=== PATIENT | male | born 1950 | race Caucasian/White ===

== ENCOUNTER 2018-09-26 19:14 | Emergency (ER) | payer OTHER ==
[2018-09-26 23:06] VITALS: BP 132/75
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
== END 2018-09-26 23:18 | disposition home or self-care (01) ==
LOC: ED 19:14
DX: S16.1XXA Strain of muscle, fascia and tendon at neck level, initial encounter (principal); S29.012A Strain of muscle and tendon of back wall of thorax, initial encounter; R20.2 Paresthesia of skin; F17.210 Nicotine dependence, cigarettes, uncomplicated; V49.40XA Driver injured in collision with unspecified motor vehicles in traffic accident, initial encounter; Y92.410 Unspecified street and highway as the place of occurrence of the external cause
CPT/HCPCS: 72125; 72128; 99281

== ENCOUNTER 2022-01-12 16:34 | Inpatient (IN) ==
[2022-01-12] MEDS ORDERED: Nicotine PATCH 14 MG/24 HR PATCH TRANSDERM ONE (17:14)
[2022-01-12] MEDS ORDERED: Nicotine PATCH 21 MG/24 HR PATCH ONE (17:15)
[2022-01-12] MEDS ORDERED: Nicotine PATCH 21 MG/24 HR PATCH TRANSDERM ONE (17:16)
[2022-01-12 17:18] LABS: ABS Lymphocytes 0.3 10^3/ul (1.0-4.8); ABS Monocytes 0.9 10^3/ul (0-0.8); Hematocrit 46 % (42-52); Hemoglobin 15.6 g/dL (14.0-18.0); Lymphocyte % 2.8 %; Mean Corpuscular HGB Conc 34 g/dL (31-36); Mean Corpuscular Hemoglobin 31 pg (27-31); Mean Corpuscular Volume 92 fL (80-94); Mean Platelet Volume 7.9 fL (7.4-10.4); Platelet Count 165 10^3/uL (150-450); Red Blood Count 4.97 10^6 /uL (4.18-5.48); Red Cell Distribution Width 14 % (10-15); White Blood Count 12.3 10^3/uL (3.5-10.8)
[2022-01-12 17:53] LABS: ALT 66 U/L (7-52); AST 179 U/L (13-39); Albumin 3.8 g/dL (3.2-5.2); Albumin/Globulin Ratio 1.6 (1-3); Alkaline Phosphatase 80 U/L (35-149); Anion Gap 11 mmol/L (2-11); Blood Urea Nitrogen 42 mg/dL (6-24); CO2 Carbon Dioxide 26 mmol/L (22-32); Calcium 8.9 mg/dL (8.6-10.3); Chloride 104 mmol/L (101-111); Globulin 2.4 g/dL (2-4); Glucose 110 mg/dL (70-100); Lipase 32 U/L (11.0-82.0); Potassium 4.2 mmol/L (3.5-5.0); Sodium 141 mmol/L (135-145); Total Protein 6.2 g/dL (6.4-8.9); eGFR CKD-EPI 50.1 (>60)
[2022-01-12 18:19] LABS: Creatine Kinase 9119 U/L (10-223)
[2022-01-12] MEDS ORDERED: Lactated Ringers 1000 ml BAG 1,000 ML IV ONE (19:31)
[2022-01-12] MEDS ORDERED: Ondansetron 4 mg VIAL 2 MG/ML 2 ml VIAL IV PRN (19:32)
[2022-01-12 20:05] LABS: C Reactive Protein 101.55 mg/L (<8.01)
[2022-01-12] MEDS: Enoxaparin 30 MG/0.3 ML SYR SUBCUT SCH (20:40)
[2022-01-12 21:11] LABS: Alcohol, S < 13 mg/dL (<13)
[2022-01-12] MEDS: Lactated Ringers 1000 ml BAG 1,000 ML IV SCH (22:16)
[2022-01-12 22:31] LABS: INR 1.19 (0.89-1.11)
[2022-01-13 06:41] LABS: ABS Eosinophils 0.1 10^3/ul (0-0.6); ABS Lymphocytes 0.9 10^3/ul (1.0-4.8); ABS Neutrophils 7.7 10^3/ul (1.5-7.7); Eosinophil % 1.2 %; Hematocrit 38 % (42-52); Hemoglobin 12.9 g/dL (14.0-18.0); Lymphocyte % 9.4 %; Mean Corpuscular HGB Conc 34 g/dL (31-36); Mean Corpuscular Hemoglobin 31 pg (27-31); Mean Corpuscular Volume 92 fL (80-94); Mean Platelet Volume 7.9 fL (7.4-10.4); Platelet Count 131 10^3/uL (150-450); Red Blood Count 4.13 10^6 /uL (4.18-5.48); Red Cell Distribution Width 14 % (10-15); White Blood Count 9.9 10^3/uL (3.5-10.8)
[2022-01-13 08:20] LABS: Albumin 3.1 g/dL (3.2-5.2); Albumin/Globulin Ratio 1.6 (1-3); Calcium 8.3 mg/dL (8.6-10.3); Total Bilirubin 1.1 mg/dL (0.2-1.0); Total Protein 5.1 g/dL (6.4-8.9); eGFR CKD-EPI 54.4 (>60)
[2022-01-13] MEDS ORDERED: Lidocaine 2% JELLY 6 ML Topical TOPICAL ONE ×2 (11:35→11:40)
[2022-01-13] MEDS: Lactated Ringers 1000 ml BAG 1,000 ML IV SCH (17:34)
[2022-01-13] MEDS: Enoxaparin 30 MG/0.3 ML SYR SUBCUT SCH (20:15)
[2022-01-14] MEDS: Lactated Ringers 1000 ml BAG 1,000 ML IV SCH ×3 (01:57→20:22)
[2022-01-14 06:53] LABS: Hematocrit 34 % (42-52); Hemoglobin 11.8 g/dL (14.0-18.0); Mean Corpuscular HGB Conc 34 g/dL (31-36); Mean Corpuscular Hemoglobin 32 pg (27-31); Mean Corpuscular Volume 94 fL (80-94); Mean Platelet Volume 8.1 fL (7.4-10.4); Platelet Count 111 10^3/uL (150-450); Red Blood Count 3.67 10^6 /uL (4.18-5.48); Red Cell Distribution Width 14 % (10-15); White Blood Count 6.3 10^3/uL (3.5-10.8)
[2022-01-14 07:11] LABS: Potassium 3.8 mmol/L (3.5-5.0); eGFR CKD-EPI 95.4 (>60)
[2022-01-14 13:22] LABS: TSH Ultra Thyroid Stim Horm 1.97 mcIU/mL (0.34-5.60)
[2022-01-14] MEDS: Enoxaparin 30 MG/0.3 ML SYR SUBCUT SCH (20:25)
[2022-01-15 10:08] LABS: ABS Eosinophils 0.1 10^3/ul (0-0.6); ABS Lymphocytes 0.5 10^3/ul (1.0-4.8); ABS Monocytes 0.4 10^3/ul (0-0.8); ABS Neutrophils 4.9 10^3/ul (1.5-7.7); Eosinophil % 1.2 %; Hematocrit 34 % (42-52); Hemoglobin 11.7 g/dL (14.0-18.0); Lymphocyte % 7.7 %; Mean Corpuscular HGB Conc 34 g/dL (31-36); Mean Corpuscular Hemoglobin 31 pg (27-31); Mean Corpuscular Volume 91 fL (80-94); Mean Platelet Volume 7.9 fL (7.4-10.4); Platelet Count 110 10^3/uL (150-450); Red Blood Count 3.75 10^6 /uL (4.18-5.48); Red Cell Distribution Width 13 % (10-15); White Blood Count 5.9 10^3/uL (3.5-10.8)
[2022-01-15 10:39] LABS: Albumin 2.9 g/dL (3.2-5.2); Albumin/Globulin Ratio 1.4 (1-3); Calcium 8.2 mg/dL (8.6-10.3); Globulin 2.1 g/dL (2-4); Potassium 3.7 mmol/L (3.5-5.0); Total Bilirubin 1.2 mg/dL (0.2-1.0); eGFR CKD-EPI 98.9 (>60)
[2022-01-15 12:16] LABS: Hepatitis B Surface Antigen Nonreactive (Nonreactive)
[2022-01-15 12:21] LABS: Hepatitis A Ab IgM Negative (Negative)
[2022-01-15 12:22] LABS: Hepatitis B Core IgM Nonreactive (Nonreactive)
[2022-01-15 12:33] LABS: Hepatitis C Antibody Negative (Negative)
[2022-01-15] MEDS: Lactated Ringers 1000 ml BAG 1,000 ML IV SCH (12:47)
[2022-01-15] MEDS: Enoxaparin 30 MG/0.3 ML SYR SUBCUT SCH (20:39)
[2022-01-16] MEDS: Lactated Ringers 1000 ml BAG 1,000 ML IV SCH ×2 (01:15→09:27)
[2022-01-16 05:57] LABS: ABS Eosinophils 0.1 10^3/ul (0-0.6); ABS Lymphocytes 0.5 10^3/ul (1.0-4.8); ABS Monocytes 0.5 10^3/ul (0-0.8); ABS Neutrophils 4.6 10^3/ul (1.5-7.7); Eosinophil % 2.2 %; Hematocrit 34 % (42-52); Hemoglobin 11.7 g/dL (14.0-18.0); Lymphocyte % 9.2 %; Mean Corpuscular HGB Conc 34 g/dL (31-36); Mean Corpuscular Hemoglobin 32 pg (27-31); Mean Corpuscular Volume 92 fL (80-94); Mean Platelet Volume 8.1 fL (7.4-10.4); Nucleated Red Blood Cells % 0.1; Platelet Count 107 10^3/uL (150-450); Red Cell Distribution Width 13 % (10-15); White Blood Count 5.8 10^3/uL (3.5-10.8)
[2022-01-16 07:26] LABS: Albumin 2.8 g/dL (3.2-5.2); Albumin/Globulin Ratio 1.5 (1-3); Calcium 7.7 mg/dL (8.6-10.3); Globulin 1.9 g/dL (2-4); Potassium 3.9 mmol/L (3.5-5.0); Total Bilirubin 0.7 mg/dL (0.2-1.0); Total Protein 4.7 g/dL (6.4-8.9); eGFR CKD-EPI 100.6 (>60)
[2022-01-16] MEDS ORDERED: Lorazepam PYXIS KEY PRN (15:08)
[2022-01-16] MEDS ORDERED: LORazepam 2 mg VIAL 1 ml IV PUSH ONE (15:08)
[2022-01-16 19:58] LABS: Anaplasma phagocytophilum Negative (Negative); B. miyamotoi PCR, B Negative (Negative); Babesia divergens/MO-1 Negative (Negative); Babesia ducani Negative (Negative); Ehrlichia chaffeensis Negative (Negative); Ehrlichia ewingii/canis Negative (Negative); Ehrlichia muris eauclairensis Negative (Negative)
[2022-01-16] MEDS: Enoxaparin 30 MG/0.3 ML SYR SUBCUT SCH (20:20)
[2022-01-17 07:03] VITALS: BP 113/68
[2022-01-17] MEDS ORDERED: Dexamethasone IV 4 MG/ML VIAL 1 ml VIAL IV SLOW PU ONE (07:05)
== END 2022-01-17 10:00 | disposition short-term general hospital (02) | DRG 91 ==
LOC: ED 16:34 → EDHOLD 16:34 → SUATTDRO 19:32 → EDHOLD 01-13 16:48 → MED 01-13 16:59
PROVIDERS: ADMIT Student in an Organized Health Care Education/Training Program; ATTEND Hospitalist